=== PATIENT | female | born 1940 | race Two or more races ===

== ENCOUNTER 2023-10-21 15:54 | Emergency (ER) | payer OTHER ==
[~2023-10-21] VITALS: Ht 170.2 cm; Wt 74.8 kg
[2023-10-21] MEDS ORDERED: PRISTIQ ER50 MG (16:21)
[2023-10-21] MEDS ORDERED: PRISTIQ25 MG (16:21)
[2023-10-21 17:59] LABS: HEMATOCRIT 39.9 % (36.0-45.00); HEMOGLOBIN 13.7 g/dL (12.0-15.00); MEAN CELL VOLUME 87.9 fL (80.00-100.00); MEAN CORPUSCULAR HEMOGLOBIN 30.2 pg (27.00-32.0); MEAN CORPUSCULAR HGB CONC 34.3 g/dl (32.0-36.0); PLATELET COUNT 205 K/uL (150-450); RED BLOOD COUNT 4.53 M/uL (4.00-6.00); RED CELL DISTRIBUTION WIDTH 14.7 % (11.5-14.5)
[2023-10-21 18:28] LABS: ALBUMIN 3.5 gm/dL (3.4-5.0); BILIRUBIN TOTAL 0.36 mg/dL (0.3-1.2); CALCIUM 9.4 mg/dL (8.5-10.1); CREATININE SERUM 0.82 mg/dL (0.55-1.02); GFR 66.26; GLOBULINA 3.5 G/DL (2.4-3.5); POTASSIUM 3.54 mEq/L (3.5-5.1)
[2023-10-21 19:00] LABS: ABG PH 7.432 (7.35-7.45); ABG PO2 84.8 mmHg (80-100); ABG pCO2 36.6 mmHg (35-45)
[2023-10-21 19:01] LABS: BASE EXCESS -0.1 mmol/l; BICARBONATE 23.8 mmol/l (23-25); Tco2 24.9 mmol/l; allen test SATISFACTORY; o2 21 %; puncture site RADIAL RIGHT
[2023-10-21 19:03] LABS: SaO2 96.7 %
== END 2023-10-21 20:50 | disposition home or self-care (01) ==
LOC: ER 15:54
PROVIDERS: Emergency Medicine
DX: R42 Dizziness and giddiness (principal); Z20.822 Contact with and (suspected) exposure to COVID-19; Z88.0 Allergy status to penicillin; Z88.2 Allergy status to sulfonamides; Z91.041 Radiographic dye allergy status